=== PATIENT | female | born 1990 | race Asian ===

== ENCOUNTER 2016-09-14 12:29 | Emergency (ER) | payer OTHER ==
[~2016-09-14] VITALS: Ht 157.5 cm; Wt 52.0 kg
[~2016-09-14 12:29] MED LIST: PRENTAB26 PO
[2016-09-14 12:38] VITALS: TEMP 37.5; Ht 157.5 cm; Wt 52.0 kg
[2016-09-14] MEDS ORDERED: CEFTRIAXONE SOD INJ 1 GM ADDVIAL IV STA (14:03)
[2016-09-14] MEDS ORDERED: SODIUM CHLORIDE 0.9% 1000ML 2,000 ML IV STA (14:03)
[2016-09-14] MEDS ORDERED: ACETAMINOPHEN 500 MG TAB PO STA (14:03)
[2016-09-14] MEDS ORDERED: KETOROLAC TROMETHAMINE 30 MG/ML VIAL IV STA (14:03)
[2016-09-14] MEDS ORDERED: DOXY100C41 PO (14:22)
[2016-09-14 14:26] LABS: BASO % 0.2 %; BASO ABS # 0.03 K/uL (0-0.2); COMPLETE YES; EOS % 0.5 %; HEMATOCRIT 41.8 % (37-47); IG% 0.3 %; LYMPH % 6.6 %; LYMPH ABS # 1.17 K/uL (1.2-3.4); MEAN CELL VOLUME 91.7 fL (80-100); MEAN CORPUSCULAR HEMOGLOBIN 31.6 pg (25-34); MEAN CORPUSCULAR HGB CONC 34.4 g/dl (32-36); MEAN PLATELET VOLUME 10.2 fL (7.4-10.4); MONO % 4.6 %; NEUT % 87.8 %; PLATELET COUNT 311 K/uL (130-400); RED BLOOD COUNT 4.56 M/uL (4.2-5.4); WHITE BLOOD COUNT 17.71 K/uL (4.8-10.8)
[2016-09-14 14:40] LABS: BUN/CREATININE RATIO 12.7 (10-20); CALCIUM 10.1 mg/dl (8.5-10.1); CREATININE 0.66 mg/dl (0.60-1.20); POTASSIUM 3.9 mmol/L (3.5-5.1)
[2016-09-14 15:28] LABS: URINE APPEARANCE CLEAR (CLEAR); URINE BILIRUBIN NEG (NEG); URINE COLOR YELLOW; URINE EPITHELIAL CELL AUTO >30 /lpf (0-5); URINE NITRITE NEG (NEG); URINE PH 5.5 (4.5-7.5); URINE SPECIFIC GRAVITY 1.024 (1.000-1.030); UROBILINOGEN NEG (NEG)
[2016-09-14 15:29] LABS: MANUAL MICROSCOPIC REQUIRED? NO; REVIEW REQ? YES
--- NOTE | 2016-09-14 15:36 | DIAGNOSTIC IMAGING REPORT ---
RIGHT BREAST ULTRASONOGRAPHY CLINICAL HISTORY: Right breast pain and fever. COMPARISON STUDY: No previous studies for comparison. FINDINGS: There is an 8 mm complex cystic nodule at the 12:00 position. At 10:00 position there is a bilobed mixed echogenicity nodule measuring 21 x 9 x 20 mm. At the 9:00 position there is a mildly hypoechoic 11 x 8 x 10 mm nodule. There are no dominant fluid collections viewed as suspicious for a drainable abscess. IMPRESSION: 1. No ultrasonographic evidence of a drainable abscess 2. Multiple indeterminate right breast nodules. Short-term ultrasonographic follow-up is recommended. This should be performed at the breast Center. Electronically signed by: Mohinder Correa M.D. 09/14/2016 3:34 PM
[2016-09-14 15:45] LABS: URINE MUCUS PRESENT (NONE PRSENT)
[2016-09-14] MEDS ORDERED: SULFAMETHOXAZOLE/TRIMETHOPRIM DS 800/160MG TAB PO STA (16:10)
[2016-09-14] MEDS ORDERED: SULF800T23 PO ×2 (17:05→17:22)
--- NOTE | 2016-09-14 17:07 | EMERGENCY ROOM VISIT NOTE ---
ED Visit Note First contact with patient: 13:15 CHIEF COMPLAINT: Right breast mastitis 3-4 days HISTORY OF PRESENT ILLNESS: Patient is a 4 week 25-year-old female who presents the emergency department for evaluation of persistent fever and worsening right breast pain, swelling and redness over the last 2-3 days. Patient is presently breast-feeding. She states that she developed redness, warmth and sensitivity to touch in the right breast over the last couple of days. She called her CERTIFIED ORTHOTIST/PEDORTHIST and was started on dicloxacillin 500 mg 4 times a day Monday evening, 2 days ago. She has had a total of 6 doses. Patient continues to experience chills, max temperature was 102F orally yesterday. She has been taking ibuprofen, applying ice and Neosporin. She has noticed some redness on the left breast as well. She is continuing to breast-feed and pump during this episode. She denies any cold or upper respiratory symptoms, chest pain, palpitations or shortness of breath. She has expected abdominal discomfort and cramping. She denies any urinary symptoms, but does confirm that she was treated for urinary tract infections while she was . She did receive an epidural, but denies any back pain. No skin rashes. No prior history of skin infections or abscesses. REVIEW OF SYSTEMS: Review of systems as per HPI. All other systems reviewed were negative. 10 systems reviewed. PMH: Electronic medical records are reviewed and summarized as above/below. See Problem List. Her tetanus is up-to-date. SOCIAL HISTORY: Patient lives at home with her and family. From [facility]. PHYSICAL EXAM: Vital Signs: Reviewed Nurse's notes. Temperature 37.5C orally. Heart rate 116. Blood pressure 108/70. CONSTITUTIONAL: Patient is an ill although nontoxic appearing 25-year-old female who is awake and alert and laying on the gurney in no acute distress. EYES: Pupils equal, round, reactive to light and accommodation. EOMs intact without nystagmus. Sclera are anicteric. ENT: Tympanic membranes intact, with normal landmarks. External canals are clear. Oral and nasopharynx are clear. Mucous membranes are moist, no lesions , tongue and gums appear normal. NECK:Supple without lymphadenopathy. No thyromegaly. No meningeal signs. Full active range of motion without discomfort. CARDIOVASCULAR: Regular rate and rhythm, with normal S1 and S2, no murmur or gallop or rub is heard. No carotid bruits auscultated. No JVD. Peripheral pulses easily palpable. RESPIRATORY: Breath sounds equal and clear to auscultation without wheezes, rales, or rhonchi heard. Full and equal chest expansion without accessory muscle use or retractions. BREASTS: Examination of the patient's breast show diffuse erythema, warmth and induration. There is no nipple discharge. Right breast may be a little bit more erythematous and tender, particularly superiorly. There are no overt cellulitic changes. No fluctuance or palpable abscesses appreciated. No lymphangitic streaking. ABDOMEN: Bowel sounds are present. Abdomen is soft, nondistended, nontender to palpation. No guarding, rebound or rigidity. INTEGUMENTARY: No lesions or rash, normal skin turgor. LYMPH: No lymphadenopathy. BACK: Nontender, no rashes or swelling. EMERGENCY DEPARTMENT COURSE: The patient was seen and evaluated as above. Her L &D notes reviewed. She delivered term by spontaneous vaginal delivery that was fairly uncomplicated under epidural. She presents today complaining of breast pain and low-grade fever. She has been on antibiotics for about 36 hours. On exam, the right breast is slightly more red and tender compared to the left. Given her history of urinary tract infections, we did perform a Femcath for a urine sample which was sent for microscopy. Findings were not overtly indicative of infection. Her CBC did demonstrated leukocytosis of 17,700, with left shift and bandemia. H&H is normal. Electrolytes are unremarkable. Right breast ultrasound was obtained and did not demonstrate any evidence for abscess. The patient was hydrated with normal saline solution. She had a low- grade fever and was medicated with Tylenol 1 g orally, was given Toradol 30 mg IV for pain and Rocephin 1 g IV empirically. On reassessment, the patient looked and felt improved. She had also nursed, and on reexamination, both of the breasts were less red. The patient was encouraged to finish the dicloxacillin. Bactrim was also added to her regimen and she was issued her first dose of one tablet DS in the emergency department. She was encouraged to continue to apply warm compresses to the area and nurse on demand and pump as needed. If her symptoms do not improve in the next 24-48 hours, she was advised that she should either recheck with OB or come back to the emergency department, at which point she may require admission for IV antibiotics. Differential diagnoses entertained included mastitis, breast abscess, UTI, pyelonephritis, endometritis, viral illness, epidural abscess, among others. RIGHT BREAST ULTRASONOGRAPHY CLINICAL HISTORY: Right breast pain and fever. COMPARISON STUDY: No previous studies for comparison. FINDINGS: There is an 8 mm complex cystic nodule at the 12:00 position. At 10:00 position there is a bilobed mixed echogenicity nodule measuring 21 x 9 x 20 mm. At the 9:00 position there is a mildly hypoechoic 11 x 8 x 10 mm nodule. There are no dominant fluid collections viewed as suspicious for a drainable abscess. IMPRESSION: 1. No ultrasonographic evidence of a drainable abscess 2. Multiple indeterminate right breast nodules. Short-term ultrasonographic follow-up is recommended. This should be performed at the breast Center. Current/Historical Medications Scheduled Doxycycline (Monohydrate) (Monodox), 100 MG PO QID Multivit/Min/Iron/Fol Ac/Pren ( Vitamin), 1 TAB PO DAILY Sulfa/Trimethoprim (Bactrim Ds 800MG/160MG), 1 TAB PO BID Allergies Coded Allergies: No Known Allergies (Unverified , 09/14/16) Vital Signs Date Time Temp Pulse Resp B/P Pulse Ox O2 Delivery O2 Flow Rate FiO2 09/14/16 17:14 72 103/57 98 09/14/16 14:57 99 18 115/63 97 Room Air 09/14/16 12:38 37.5 116 16 108/70 98 Room Air Laboratory Results 09/14/16 13:25 Red Blood Count 4.56, Mean Corpuscular Volume 91.7, Mean Corpuscular Hemoglobin 31.6, Mean Corpuscular Hemoglobin Concent 34.4, Mean Platelet Volume 10.2, Neutrophils (%) (Auto) 87.8, Lymphocytes (%) (Auto) 6.6, Monocytes (%) (Auto) 4.6, Eosinophils (%) (Auto) 0.5, Basophils (%) (Auto) 0.2, Neutrophils # (Auto) 15.56, Lymphocytes # (Auto) 1.17, Monocytes # (Auto) 0.81, Eosinophils # (Auto) 0.08, Basophils # (Auto) 0.03 09/14/16 13:25 Test 09/14/16 13:25 09/14/16 14:44 White Blood Count 17.71 K/uL (4.8-10.8) Red Blood Count 4.56 M/uL (4.2-5.4) Hemoglobin 14.4 g/dL (12.0-16.0) Hematocrit 41.8 % (37-47) Mean Corpuscular Volume 91.7 fL (80-100) Mean Corpuscular Hemoglobin 31.6 pg (25-34) Mean Corpuscular Hemoglobin Concent 34.4 g/dl (32-36) Platelet Count 311 K/uL (130-400) Mean Platelet Volume 10.2 fL (7.4-10.4) Neutrophils (%) (Auto) 87.8 % Lymphocytes (%) (Auto) 6.6 % Monocytes (%) (Auto) 4.6 % Eosinophils (%) (Auto) 0.5 % Basophils (%) (Auto) 0.2 % Neutrophils # (Auto) 15.56 K/uL (1.4-6.5) Lymphocytes # (Auto) 1.17 K/uL (1.2-3.4) Monocytes # (Auto) 0.81 K/uL (0.11-0.59) Eosinophils # (Auto) 0.08 K/uL (0-0.5) Basophils # (Auto) 0.03 K/uL (0-0.2) RDW Standard Deviation 42.1 fL (36.4-46.3) RDW Coefficient of Variation 12.4 % (11.5-14.5) Immature Granulocyte % (Auto) 0.3 % Immature Granulocyte # (Auto) 0.06 K/uL (0.00-0.02) Anion Gap 10.0 mmol/L (3-11) Est Creatinine Clear Calc Drug Dose 104.9 ml/min Estimated GFR () 144.3 Estimated GFR (Non- 124.5 BUN/Creatinine Ratio 12.7 (10-20) Calcium Level 10.1 mg/dl (8.5-10.1) Urine Color YELLOW Urine Appearance CLEAR (CLEAR) Urine pH 5.5 (4.5-7.5) Urine Specific [place] 1.024 (1.000-1.030) Urine Protein NEG (NEG) Urine Glucose (UA) NEG (NEG) Urine Ketones NEG (NEG) Urine Occult Blood 1+ (NEG) Urine Nitrite NEG (NEG) Urine Bilirubin NEG (NEG) Urine Urobilinogen NEG (NEG) Urine Leukocyte Esterase NEG (NEG) Urine WBC (Auto) 1-5 /hpf (0-5) Urine RBC (Auto) 0-4 /hpf (0-4) Urine Hyaline Casts (Auto) 10-30 /lpf (0-5) Urine Epithelial Cells (Auto) >30 /lpf (0-5) Urine Bacteria (Auto) NEG (NEG) Urine Renal Epithelial Cells 0-5 /lpf (0-5) Urine Mucus PRESENT (NONE PRSENT) Medications Administered Medications (Trade) Dose Ordered Sig/Sajan Route Start Time Stop Time Status Last Admin Dose Admin Sodium Chloride (Nss 1000ml) 2,000 ml @ 999 mls/hr Q2H1M STAT IV 09/14/16 14:03 09/14/16 16:03 DC 09/14/16 14:32 999 MLS/HR Acetaminophen (Tylenol Tab) 1,000 mg NOW STAT PO 09/14/16 14:03 09/14/16 14:07 DC 09/14/16 14:34 1,000 MG Ketorolac Tromethamine (Toradol Inj) 30 mg NOW STAT IV 09/14/16 14:03 09/14/16 14:07 DC 09/14/16 14:33 30 MG Ceftriaxone Sodium (Rocephin Inj) 1 gm NOW STAT IV 09/14/16 14:03 09/14/16 14:07 DC 09/14/16 14:33 1 GM Trimethoprim/ Sulfamethoxazole (Septra Ds 800/ 160MG Tab) 1 tab NOW STAT PO 09/14/16 16:10 09/14/16 16:11 DC 09/14/16 16:17 1 TAB Departure Information Impression Primary Impression: Mastitis Prescriptions Sulfa/Trimethoprim (Bactrim Ds 800MG/160MG) Tab 1 TAB PO BID for 10 Days, #20 TAB Prov: Molly Paetl,MANI 09/14/16 Referrals No Doctor, Assigned (PCP) Patient Instructions A Signature Page, [facility] [employer] Additional Instructions Finish dicloxacillin as previously prescribed. Trimethoprim-Sulfamethoxazole(Bactrim DS): Take one pill twice daily for 10 days for your skin infection. All antibiotics can cause diarrhea. If this occurs and you feel worse or it does not resolve in 1-2 days follow up with your doctor or return to the Emergency Department as this could be signs of serious underlying problems. Any medication can cause an allergic reaction, stop the pills immediately and return to the ER for rash, hives, breathing difficulties, or swelling. Ibuprofen(Motrin, Advil) may be used for fever or pain. Use 600mg every six hours as needed. Take with food. Avoid using more than 2400mg in a 24 hour period. Do not use 2400mg per day for more than three consecutive days without physician direction. Prolonged inappropriate use can lead to stomach upset or ulcers. (AND/OR) Acetaminophen(Tylenol) may be used for fever or pain. Use 1000mg every six hours as needed. Avoid using more than 3000mg in a 24 hour period. Warm compresses to the affected area 4 times daily for 15-20 minutes. Continue to breastfeed on demand and pump as needed. Rest and drink plenty of fluids. Continue current medications. Return to the ER for severe pain, persistent fevers, spreading redness, or any worsening of your condition. Follow up with CERTIFIED ORTHOTIST/PEDORTHIST within 2-3 days for a recheck of the current condition.
[2016-09-14 17:14] VITALS: BP 103/57; PULSE 72; O2SAT 98
== END 2016-09-14 17:23 | disposition home or self-care (01) ==
LOC: C.EDB 12:31 → C.EDD 17:23
DX: N61.0 Mastitis without abscess (principal)

== ENCOUNTER → 2017-06-01 | Outpatient (CLI) | payer OTHER ==
[~2017-06-01] MED LIST changes: +DOXY100C41 PO; +OPTIRAY 320 IV PRN; +SULF800T23 PO
--- NOTE | 2017-06-01 10:04 | DIAGNOSTIC IMAGING REPORT ---
ABD/PELVIS IV AND ORAL CONT CT DOSE: 226.80 mGycm HISTORY: Abnormal ultrasound WITH IV AND ORAL ONLY @ 80 SEC DELAY PER LIVIER (RONAN) TECHNIQUE: Multiaxial CT images of the abdomen and pelvis were performed following the use of intravenous and oral contrast. A dose lowering technique was utilized adhering to the principles of ALARA. COMPARISON STUDY: None. FINDINGS: The lung bases are clear. The liver, spleen, gallbladder, pancreas, kidneys, and adrenal glands are within normal limits. No bowel wall thickening or obstruction. The pelvic organs are unremarkable. No suspicious lytic or blastic osseous lesions. Reconstructed images of the kidneys demonstrate minimal lateral renal iliac this is considered a nonobstructive finding. Enhancement characteristics are uniform. There are no filling defects within the renal collecting systems. Bowel pattern is considered nonobstructive. Appendix is normal. Small bilateral ovarian follicular cyst. Bladder is midline. Uterus is anteflexed. An intrauterine device is present. IMPRESSION: 1. Mild fullness of the renal collecting systems bilaterally. 2. No evidence for space-occupying renal lesion or filling defect. 3. Bilateral ovarian follicular cyst. 4. Evaluation of the abdomen and pelvis is otherwise negative. 5. Urinary tracts are considered negative for an acute abnormality. The above report was generated using voice recognition software. It may contain grammatical, syntax or spelling errors. Electronically signed by: Casey Posey M.D. 06/01/2017 10:02 AM Dictated Date/Time: 06/01/2017 9:52 AM
== END | disposition home or self-care (01) ==
LOC: C.CTS 09:03
PROVIDERS: ATTEND Physician Assistant Medical
DX: R10.2 Pelvic and perineal pain (principal); N83.01 Follicular cyst of right ovary; N83.02 Follicular cyst of left ovary

== ENCOUNTER 2017-07-25 21:11 | Emergency (ER) | payer OTHER ==
[~2017-07-25] VITALS: Ht 157.5 cm; Wt 48.0 kg
[~2017-07-25 21:11] MED LIST changes: -OPTIRAY 320 IV PRN
[2017-07-25 21:26] VITALS: TEMP 36.8; Ht 157.5 cm; Wt 48.0 kg
[2017-07-25] MEDS ORDERED: KETOROLAC TROMETHAMINE 30 MG/ML VIAL IV STA (21:42)
[2017-07-25 22:00] LABS: BASO % 0.2 %; BASO ABS # 0.01 K/uL (0-0.2); COMPLETE YES; EOS % 3.4 %; HEMATOCRIT 34.6 % (37-47); IG% 0.3 %; LYMPH % 47.9 %; LYMPH ABS # 2.96 K/uL (1.2-3.4); MEAN CELL VOLUME 88.7 fL (80-100); MEAN CORPUSCULAR HEMOGLOBIN 30.5 pg (25-34); MEAN CORPUSCULAR HGB CONC 34.4 g/dl (32-36); MEAN PLATELET VOLUME 9.4 fL (7.4-10.4); MONO % 7.1 %; NEUT % 41.1 %; PLATELET COUNT 273 K/uL (130-400); WHITE BLOOD COUNT 6.18 K/uL (4.8-10.8)
[2017-07-25 22:03] LABS: URINE APPEARANCE CLEAR (CLEAR); URINE BILIRUBIN NEG (NEG); URINE COLOR YELLOW; URINE NITRITE NEG (NEG); URINE SPECIFIC GRAVITY 1.007 (1.000-1.030); UROBILINOGEN NEG (NEG); ZZUR CULT IF INDIC CLEAN CATCH NO
[2017-07-25 22:07] LABS: MANUAL MICROSCOPIC REQUIRED? NO; REVIEW REQ? NO
[2017-07-25 22:31] LABS: ALT/SGPT 13 U/L (12-78); BLOOD UREA NITROGEN 13 mg/dl (7-18); BUN/CREATININE RATIO 24.8 (10-20); CARBON DIOXIDE 26 mmol/L (21-32); CHLORIDE 106 mmol/L (98-107); CREATININE 0.54 mg/dl (0.60-1.20); GLUCOSE 87 mg/dl (70-99); POTASSIUM 3.7 mmol/L (3.5-5.1); SODIUM 141 mmol/L (136-145)
[2017-07-25 22:34] LABS: ALKALINE PHOSPHATASE 61 U/L (45-117); AST/SGOT 12 U/L (15-37)
[2017-07-25 23:50] VITALS: BP 97/62; PULSE 66; O2SAT 99
--- NOTE | 2017-07-25 23:53 | DIAGNOSTIC IMAGING REPORT ---
PELVIC COMPLETE NON OB, TRANSVAG-FEMALE PELVIS CLINICAL HISTORY: 26 years-old Female presenting with Left side low abd pain. TECHNIQUE: Real-time grayscale and color and spectral Doppler ultrasound imaging of the pelvis was performed first using a transabdominal probe and subsequently transvaginal for better characterization. COMPARISON: None. FINDINGS: Uterus: Intrauterine device in appropriate position at the uterine fundus. Anteverted retroflexed. The uterus measures 7.8 x 3.8 x 5.6 cm. Endometrial stripe measures 6 mm in thickness. Endometrium normal-appearing. Cervix normal. Right adnexa: Right ovary contains multiple follicles. Right ovary measures 3.4 x 1.7 x 2.2 cm. Normal color Doppler flow and arterial and venous waveforms within the ovarian parenchyma. Left adnexa: Left ovary contains multiple follicles. Left ovary measures 3.7 x 1.5 x 2.2 cm. Normal color Doppler flow and arterial and venous waveforms within the ovarian parenchyma. Other: Trace free fluid, likely physiologic. IMPRESSION: Appropriately positioned intrauterine device. No ovarian torsion or significant abnormality in the pelvis. Electronically signed by: Micha Allred M.D. 07/25/2017 11:52 PM Dictated Date/Time: 07/25/2017 11:50 PM
[2017-07-26] MEDS ORDERED: ONDANSETRON HOME PACK 4MG OD TAB PO ONE (00:15)
[2017-07-26] MEDS ORDERED: MAGNESIUM CITRATE 296 ML/BTL PO ONE (00:15)
--- NOTE | 2017-07-26 01:40 | EMERGENCY ROOM VISIT NOTE ---
History First contact with patient: 21:32 Chief Complaint: ABDOMINAL PAIN Stated Complaint: LEFT LOWER ABDOMINAL CRAMP Nursing Triage Summary: Pt states lL q abd pain started 2 hours ago, states she was dx with a kidney stone a month ago, skin w/d/i, lungs CTA, abd flat, positive BS, denies N/V/D. History of Present Illness The patient is a 26 year old female who presents to the Emergency Room with complaints of left lower quadrant abdominal pain began to worsen about 2 hours ago. The patient states the pain is dull and nonradiating. She considers herself usually healthy, but states that she had a kidney stone about one month ago. The patient also has a history of constipation, however this is chronic. She is not had a bowel movement in the past 4-5 days. She has not had significant vomiting, but is mildly nauseated. No chest pain, chest tightness, or shortness of breath. No fever or chills. No recent antibiotic use. She does not believe that she is . She rates her discomfort a 5/10. Review of Systems More than 10 systems were reviewed and otherwise negative with the exception of history of present illness. Past Medical/Surgical History Medical Problems: (1) No Known Active Medical Problems Family History No pertinent family history Social History Smoking Status: Never Smoker Current/Historical Medications No Active Prescriptions or Reported Meds Physical Exam Vital Signs Date Time Temp Pulse Resp B/P (MAP) Pulse Ox O2 Delivery O2 Flow Rate FiO2 07/25/17 23:50 66 16 97/62 99 Room Air 07/25/17 21:43 67 18 113/56 99 Room Air 07/25/17 21:26 36.8 65 20 108/53 98 Room Air Physical Exam VITALS: Vitals are noted on the nurse's note and reviewed by myself. Vital signs stable. GENERAL: Well-developed, well-nourished, female, who is in no acute distress and resting comfortably. Patient is cooperative with the examination. HEART: Regular rate and rhythm without murmurs gallops or rubs. LUNGS: Clear to auscultation bilaterally without wheezes, rales or rhonchi. No retractions or accessory muscle use. ABDOMEN: Positive normal bowel sounds x 4. Soft, nontender, without masses or organomegaly. No guarding or rebound tenderness. MUSCULOSKELETAL: No muscle atrophy, erythema, or edema noted. Full range of motion without joint tenderness in all extremities. Medical Decision & Procedures ER Provider Diagnostic Interpretation: PELVIC COMPLETE NON OB, TRANSVAG-FEMALE PELVIS CLINICAL HISTORY: 26 years-old Female presenting with Left side low abd pain. TECHNIQUE: Real-time grayscale and color and spectral Doppler ultrasound imaging of the pelvis was performed first using a transabdominal probe and subsequently transvaginal for better characterization. COMPARISON: None. FINDINGS: Uterus: Intrauterine device in appropriate position at the uterine fundus. Anteverted retroflexed. The uterus measures 7.8 x 3.8 x 5.6 cm. Endometrial stripe measures 6 mm in thickness. Endometrium normal-appearing. Cervix normal. Right adnexa: Right ovary contains multiple follicles. Right ovary measures 3.4 x 1.7 x 2.2 cm. Normal color Doppler flow and arterial and venous waveforms within the ovarian parenchyma. Left adnexa: Left ovary contains multiple follicles. Left ovary measures 3.7 x 1.5 x 2.2 cm. Normal color Doppler flow and arterial and venous waveforms within the ovarian parenchyma. Other: Trace free fluid, likely physiologic. IMPRESSION: Appropriately positioned intrauterine device. No ovarian torsion or significant abnormality in the pelvis. PELVIC COMPLETE NON OB, TRANSVAG-FEMALE PELVIS CLINICAL HISTORY: 26 years-old Female presenting with Left side low abd pain. TECHNIQUE: Real-time grayscale and color and spectral Doppler ultrasound imaging of the pelvis was performed first using a transabdominal probe and subsequently transvaginal for better characterization. COMPARISON: None. FINDINGS: Uterus: Intrauterine device in appropriate position at the uterine fundus. Anteverted retroflexed. The uterus measures 7.8 x 3.8 x 5.6 cm. Endometrial stripe measures 6 mm in thickness. Endometrium normal-appearing. Cervix normal. Right adnexa: Right ovary contains multiple follicles. Right ovary measures 3.4 x 1.7 x 2.2 cm. Normal color Doppler flow and arterial and venous waveforms within the ovarian parenchyma. Left adnexa: Left ovary contains multiple follicles. Left ovary measures 3.7 x 1.5 x 2.2 cm. Normal color Doppler flow and arterial and venous waveforms within the ovarian parenchyma. Other: Trace free fluid, likely physiologic. IMPRESSION: Appropriately positioned intrauterine device. No ovarian torsion or significant abnormality in the pelvis. Laboratory Results 07/25/17 21:50 Red Blood Count 3.90, Mean Corpuscular Volume 88.7, Mean Corpuscular Hemoglobin 30.5, Mean Corpuscular Hemoglobin Concent 34.4, Mean Platelet Volume 9.4, Neutrophils (%) (Auto) 41.1, Lymphocytes (%) (Auto) 47.9, Monocytes (%) (Auto) 7.1, Eosinophils (%) (Auto) 3.4, Basophils (%) (Auto) 0.2, Neutrophils # (Auto) 2.54, Lymphocytes # (Auto) 2.96, Monocytes # (Auto) 0.44, Eosinophils # (Auto) 0.21, Basophils # (Auto) 0.01 07/25/17 21:50 Test 07/25/17 21:50 White Blood Count 6.18 K/uL (4.8-10.8) Red Blood Count 3.90 M/uL (4.2-5.4) Hemoglobin 11.9 g/dL (12.0-16.0) Hematocrit 34.6 % (37-47) Mean Corpuscular Volume 88.7 fL (80-100) Mean Corpuscular Hemoglobin 30.5 pg (25-34) Mean Corpuscular Hemoglobin Concent 34.4 g/dl (32-36) Platelet Count 273 K/uL (130-400) Mean Platelet Volume 9.4 fL (7.4-10.4) Neutrophils (%) (Auto) 41.1 % Lymphocytes (%) (Auto) 47.9 % Monocytes (%) (Auto) 7.1 % Eosinophils (%) (Auto) 3.4 % Basophils (%) (Auto) 0.2 % Neutrophils # (Auto) 2.54 K/uL (1.4-6.5) Lymphocytes # (Auto) 2.96 K/uL (1.2-3.4) Monocytes # (Auto) 0.44 K/uL (0.11-0.59) Eosinophils # (Auto) 0.21 K/uL (0-0.5) Basophils # (Auto) 0.01 K/uL (0-0.2) RDW Standard Deviation 39.8 fL (36.4-46.3) RDW Coefficient of Variation 12.4 % (11.5-14.5) Immature Granulocyte % (Auto) 0.3 % Immature Granulocyte # (Auto) 0.02 K/uL (0.00-0.02) Urine Color YELLOW Urine Appearance CLEAR (CLEAR) Urine pH 7.0 (4.5-7.5) Urine Specific [place] 1.007 (1.000-1.030) Urine Protein NEG (NEG) Urine Glucose (UA) NEG (NEG) Urine Ketones NEG (NEG) Urine Occult Blood TRACE (NEG) Urine Nitrite NEG (NEG) Urine Bilirubin NEG (NEG) Urine Urobilinogen NEG (NEG) Urine Leukocyte Esterase TRACE (NEG) Urine WBC (Auto) 1-5 /hpf (0-5) Urine RBC (Auto) 0-4 /hpf (0-4) Urine Hyaline Casts (Auto) 0 /lpf (0-5) Urine Epithelial Cells (Auto) 5-10 /lpf (0-5) Urine Bacteria (Auto) NEG (NEG) Urine Test NEG (NEG) Anion Gap 9.0 mmol/L (3-11) Est Creatinine Clear Calc Drug Dose 121.7 ml/min Estimated GFR () > 150.0 Estimated GFR (Non- 132.1 BUN/Creatinine Ratio 24.8 (10-20) Calcium Level 9.0 mg/dl (8.5-10.1) Total Bilirubin 0.2 mg/dl (0.2-1) Aspartate Amino Transf (AST/SGOT) 12 U/L (15-37) Alanine Aminotransferase (ALT/SGPT) 13 U/L (12-78) Alkaline Phosphatase 61 U/L (45-117) Total Protein 7.4 gm/dl (6.4-8.2) Albumin 3.8 gm/dl (3.4-5.0) Globulin 3.6 gm/dl (2.5-4.0) Albumin/Globulin Ratio 1.0 (0.9-2) Lipase 149 U/L (73-393) Medications Administered Medications (Trade) Dose Ordered Sig/Sajan Route Start Time Stop Time Status Last Admin Dose Admin Ketorolac Tromethamine (Toradol Inj) 30 mg NOW STAT IV 07/25/17 21:42 07/25/17 21:45 DC 07/25/17 21:57 30 MG ED Course Physical exam and history were performed. Nursing notes, EMR, and Medication List were personally reviewed. Patient appears to have left-sided abdominal pain for the past one to 2 hours. The patient does not appear toxic on examination. She does not have significantly reducible tenderness. Evidently she does have an IUD, and believes that some of her pain may be coming from this. She is without vaginal drainage or discharge and defers pelvic exam. IV access was established and labs were obtained. The patient was medicated with IV Toradol here in the department. Plain films and ultrasound were performed. The patient's blood work is as above and was reviewed. She does not have a significantly elevated white blood cell count, significant anemia, bandemia, or gross electrolyte imbalance. Urine is without obvious infection with culture pending. Her x-ray does show some constipation but no free air or obstruction. Ultrasound was without significant acute findings, and does identify an appropriately positioned IUD. On reevaluation the patient felt much more comfortable after the Toradol. She did not have any worsening of her symptoms. Repeat abdominal exam did not show any worsening of her symptoms. Overall and a lengthy discussion with patient and family about options of care. She is comfortable with discharge home, which appears reasonable. I suspect that some of her discomfort is related to her constipation, and I will give her a home pack of magnesium citrate. We'll also give her a home pack of Zofran. Her symptoms are likely viral or foodborne in nature and should improve over the next few days with conservative care. I recommended she follow with her PCP for further care and management. She is otherwise invited back to the ER with any new, worsening, or concerning symptoms. The chart was completed utilizing [employer] Speech Voice Recognition Software. Grammatical errors, random word insertions, pronoun errors, and incomplete sentences are an occasional consequence of this system due to software limitations, ambient noise, and hardware issues. Any formal questions or concerns about the content, text, or information contained within the body of this dictation should be directly addressed to the provider for clarification. . Medical Decision Differential diagnosis: Etiologies such as appendicitis, diverticulitis, PUD, biliary pathology, UTI, pancreatitis, obstruction, mesenteric ischemia, aortic pathology, infections, inflammatory bowel disease, renal colic, as well as others were entertained. Impression Primary Impression: Left sided abdominal pain Additional Impressions: Nausea Constipation Departure Information Dispostion Home / Self-Care Condition GOOD Prescriptions No Active Prescriptions or Reported Meds Forms HOME CARE DOCUMENTATION FORM, IMPORTANT VISIT INFORMATION Patient Instructions My [facility] Additional Instructions You were seen and evaluated today on an emergency basis only. This is not a substitute for, or an effort to provide, complete comprehensive medical care. It is not possible to recognize and treat all injuries or illnesses in a single emergency department visit. For this reason it is recommended that you followup with your primary care physician with any ongoing or persistent symptoms. Zofran 1 tablet dissolved under the tongue every 6 hrs as needed for nausea. Take magnesium citrate at home. Drink one half of the bottle, wait one hour, then drink the other half. We recommend you take this with lots of fluids as it will cause a bowel movement. You are welcome to return to the emergency department anytime with new, worsening, or concerning symptoms. Problem Qualifiers
--- NOTE | 2017-07-26 06:50 | DIAGNOSTIC IMAGING REPORT ---
ABDOMEN 2VIEW W/PA CHEST RTN CLINICAL HISTORY: Left lower quadrant abdominal pain COMPARISON STUDY: CT scan dated 06/01/2017 FINDINGS: The erect chest reveals no evidence of free air. There is no evidence of focal pulmonary consolidation.] Erect and supine views of the abdomen reveal no abnormally dilated loops of large or small bowel. There are no transition zone to indicate bowel obstruction. There is scattered stool within the colon. An IUD is visualized. IMPRESSION: No evidence of bowel obstruction. No evidence of free air. Electronically signed by: Mohinder Correa M.D. 07/26/2017 6:49 AM Dictated Date/Time: 07/26/2017 6:49 AM
== END 2017-07-26 00:20 | disposition home or self-care (01) ==
LOC: C.EDB 21:12 → C.EDC 07-26 00:20
DX: R10.32 Left lower quadrant pain (principal); R11.0 Nausea; K59.00 Constipation, unspecified; Z87.442 Personal history of urinary calculi

== ENCOUNTER 2017-08-05 23:25 | Emergency (ER) | payer OTHER ==
[~2017-08-05] VITALS: Ht 157.5 cm; Wt 48.2 kg
[2017-08-05 23:34] VITALS: TEMP 36.5; Ht 157.5 cm; Wt 48.2 kg
[2017-08-05] MEDS ORDERED: ACETAMINOPHEN 500 MG TAB PO STA (23:57)
[2017-08-06] MEDS ORDERED: DICYCLOMINE HCL 10 MG CAP PO ONE
--- NOTE | 2017-08-06 00:12 | EMERGENCY ROOM VISIT NOTE ---
History Report prepared by Kathleen: Veronique Torres Under the Supervision of: Dr. Jennyfer Kilpatrick D.O. First contact with patient: 23:37 Chief Complaint: ABDOMINAL PAIN Stated Complaint: LOWER BACK/ABD PAIN Nursing Triage Summary: pt reports started with L side abdominal pain at 1200 noon after taking mag citrate last night for constipation and then having large BM this AM History of Present Illness The patient is a 26 year old female who presents to the Emergency Room with complaints of constant left lower abdominal pain starting 1200 today. The pain goes into her left lower back. She has a history of constipation. She took magnesium citrate last night and had a large bowel movement this morning. The pain started after the bowel movement. The pain worsens with movement. She has not tried any medications for the pain. She states that her stool today was more green than normal. She denies any blood in the stool. She has been feeling chilly and nauseous. Her nausea is currently improved. She denies any vomiting or fever. She denies any recent travel, dietary changes, or sick contacts. She finished medications for H. pylori last month and has not had any symptoms since. She has had intermittent LLQ pain since she had her ParaGard placed. She has had an US which found that it was normally placed. That pain is different from her pain today. She notes that she had some blood tinged vaginal discharge this morning. She is currently mid cycle and usually does not having bleeding mid cycle. She last had intercourse 3-4 days ago. She did not have any discomfort or bleeding at that time. She is currently on a 7 day course of Cipro for UTI. She is on day 3 or 4. She is prone to UTIs and has had them in the past. She has had Cipro before without side effects. She denies any history of uterine problems. She had a colonoscopy 4 years ago for her constipation issues that found her colon was long. She states that she had a CT recently. Source of History: patient Onset: 1200 Position: abdomen (LLQ) Quality: other (pain) Timing: constant Modifying Factors (Worsening): movement Associated Symptoms: + chills, + nausea, + back pain, No fevers, No vomiting , No hematochezia Note: Pt reports bloody vaginal discharge. Review of Systems See HPI for pertinent positives & negatives. A total of 10 systems reviewed and were otherwise negative. Past Medical & Surgical Medical Problems: (1) Helicobacter pylori (H. pylori) (2) UTI (urinary tract infection) Family History Heart disease Hypertension Social History Smoking Status: Never Smoker Marital Status: Occupation Status: [employer] student Current/Historical Medications Scheduled Cefuroxime Axetil (Cefuroxime Axetil), 250 MG PO Q12 Cholecalciferol (Vitamin D3), 1 TAB PO DAILY Dicyclomine Hcl (Bentyl), 20 MG PO Q8 Allergies Coded Allergies: No Known Allergies (Unverified , 08/06/17) Physical Exam Vital Signs Date Time Temp Pulse Resp B/P (MAP) Pulse Ox O2 Delivery O2 Flow Rate FiO2 08/06/17 03:15 66 17 103/61 98 08/06/17 01:03 65 15 92/50 100 Room Air 08/05/17 23:34 36.5 67 18 96/61 99 Room Air Physical Exam GENERAL: alert, well appearing, well nourished, no distress, non-toxic EYE EXAM: normal conjunctiva, PERRL and EOM's grossly intact OROPHARYNX: no exudate, no erythema, lips, buccal mucosa, and tongue normal and mucous membranes are moist NECK: supple, no nuchal rigidity, no adenopathy, non-tender LUNGS: Clear to auscultation. Normal chest wall mechanics HEART: no murmurs, S1 normal and S2 normal ABDOMEN: abdomen soft, LLQ tenderness, mild suprapubic tenderness, normo-active bowel sounds, no masses, no rebound or guarding. BACK: Back is symmetrical on inspection and there is no deformity, no midline tenderness, no CVA tenderness. Left lower back tenderness. PELVIS: Patient could not tolerate insertion of speculum due to pain. On digital exam, cervix normal, IUD string palpable, no blood or discharge noted on gloved finger. Patient with left adnexal tenderness on bimanual exam. No CMT. No right adnexal tenderness. SKIN: no rashes and no bruising UPPER EXTREMITIES: upper extremities are grossly normal. LOWER EXTREMITIES: No pitting edema. NEURO EXAM: Normal sensorium, cranial nerves II-XII grossly intact, normal speech, normal gait, no gross weakness of arms, no gross weakness of legs. Medical Decision & Procedures ER Provider Diagnostic Interpretation: Radiology results have been interpreted by the [facility] radiologist and reviewed by me. US Renal: Right kidney measure 10.6 cm in length. No hydronephrosis or stone. Left kidney measures 10.2 cm in length. No hydronephrosis or stone. Visualized portions of the bladder are unremarkable. Bilateral ureteral jets visualized. Laboratory Results 08/05/17 00:05 Red Blood Count 4.18, Mean Corpuscular Volume 90.7, Mean Corpuscular Hemoglobin 30.4, Mean Corpuscular Hemoglobin Concent 33.5, Mean Platelet Volume 9.6, Neutrophils (%) (Auto) 57.0, Lymphocytes (%) (Auto) 33.2, Monocytes (%) (Auto) 7.3, Eosinophils (%) (Auto) 2.1, Basophils (%) (Auto) 0.3, Neutrophils # (Auto) 4.95, Lymphocytes # (Auto) 2.88, Monocytes # (Auto) 0.63, Eosinophils # (Auto) 0.18, Basophils # (Auto) 0.03 08/05/17 00:05 Test 08/05/17 00:05 08/05/17 23:44 White Blood Count 8.68 K/uL (4.8-10.8) Red Blood Count 4.18 M/uL (4.2-5.4) Hemoglobin 12.7 g/dL (12.0-16.0) Hematocrit 37.9 % (37-47) Mean Corpuscular Volume 90.7 fL (80-100) Mean Corpuscular Hemoglobin 30.4 pg (25-34) Mean Corpuscular Hemoglobin Concent 33.5 g/dl (32-36) Platelet Count 269 K/uL (130-400) Mean Platelet Volume 9.6 fL (7.4-10.4) Neutrophils (%) (Auto) 57.0 % Lymphocytes (%) (Auto) 33.2 % Monocytes (%) (Auto) 7.3 % Eosinophils (%) (Auto) 2.1 % Basophils (%) (Auto) 0.3 % Neutrophils # (Auto) 4.95 K/uL (1.4-6.5) Lymphocytes # (Auto) 2.88 K/uL (1.2-3.4) Monocytes # (Auto) 0.63 K/uL (0.11-0.59) Eosinophils # (Auto) 0.18 K/uL (0-0.5) Basophils # (Auto) 0.03 K/uL (0-0.2) RDW Standard Deviation 41.1 fL (36.4-46.3) RDW Coefficient of Variation 12.4 % (11.5-14.5) Immature Granulocyte % (Auto) 0.1 % Immature Granulocyte # (Auto) 0.01 K/uL (0.00-0.02) Anion Gap 4.0 mmol/L (3-11) Est Creatinine Clear Calc Drug Dose 146.7 ml/min Estimated GFR () > 150.0 Estimated GFR (Non- 140.2 BUN/Creatinine Ratio 14.9 (10-20) Calcium Level 8.4 mg/dl (8.5-10.1) Total Bilirubin 0.3 mg/dl (0.2-1) Aspartate Amino Transf (AST/SGOT) 18 U/L (15-37) Alanine Aminotransferase (ALT/SGPT) 17 U/L (12-78) Alkaline Phosphatase 55 U/L (45-117) Total Protein 7.5 gm/dl (6.4-8.2) Albumin 3.9 gm/dl (3.4-5.0) Globulin 3.6 gm/dl (2.5-4.0) Albumin/Globulin Ratio 1.1 (0.9-2) Human Chorionic Gonadotropin, Qual NEG (NEG) Urine Color YELLOW Urine Appearance CLEAR (CLEAR) Urine pH 7.5 (4.5-7.5) Urine Specific [place] 1.006 (1.000-1.030) Urine Protein NEG (NEG) Urine Glucose (UA) NEG (NEG) Urine Ketones NEG (NEG) Urine Occult Blood NEG (NEG) Urine Nitrite NEG (NEG) Urine Bilirubin NEG (NEG) Urine Urobilinogen NEG (NEG) Urine Leukocyte Esterase TRACE (NEG) Urine WBC (Auto) 1-5 /hpf (0-5) Urine RBC (Auto) 0-4 /hpf (0-4) Urine Hyaline Casts (Auto) 1-5 /lpf (0-5) Urine Epithelial Cells (Auto) 0-5 /lpf (0-5) Urine Bacteria (Auto) NEG (NEG) Urine Renal Epithelial Cells /lpf (0-5) Laboratory results per my review. Medications Administered Medications (Trade) Dose Ordered Sig/Sajan Route Start Time Stop Time Status Last Admin Dose Admin Acetaminophen (Tylenol Tab) 1,000 mg NOW STAT PO 08/05/17 23:57 08/06/17 00:00 DC 08/06/17 00:13 1,000 MG Dicyclomine HCl (Bentyl Cap) 10 mg NOW ONCE PO 08/06/17 00:00 08/06/17 00:01 DC 08/06/17 00:14 10 MG Ketorolac Tromethamine (Toradol Inj) 30 mg NOW STAT IV 08/06/17 01:27 08/06/17 01:28 DC 08/06/17 01:45 30 MG ED Course 2342: The patient was evaluated in room A3. A complete history and physical exam was performed. 2357: Acetaminophen 1000 mg PO. 0000: Bentyl Cap 10 mg PO. 0127: Toradol Inj 30 mg IV. 0226: I reevaluated the patient. I performed a pelvic exam. Findings are listed in the physical exam. The patient is still having pain with movement, but is generally mildly improved. No recurrent nausea. I discussed additional imaging and repeat pelvic ultrasound. She declined and prefers to go home. I discussed the findings and the treatment plan with the patient. She verbalizes agreement and understanding. She was discharged home. Medical Decision Differential diagnoses includes but is not limited to gastritis, peptic ulcer disease, GERD, gallbladder disease, pancreatitis, small bowel obstruction, acute coronary syndrome, pericarditis, ischemic bowel, irritable bowel disease, irritable bowel syndrome, appendicitis, diverticulitis, malignancy, hernia, urinary tract infection, torsion, /ectopic , perforation, trauma, infectious. Patient well-appearing here despite complaints and pain improved with medications. Pelvic exam incomplete due to pain. Reviewed pelvic ultrasound performed at the last visit which was unremarkable. I offered patient a repeat ultrasound and she declined. He is insured medical decision making and additional review of prior CAT scan, we discussed risks versus benefits of CAT scan, and I did not feel patient's condition given normal labs warranted repeat CAT scan, patient was agreeable and did not want to pursue repeat CAT scan area did patient was afebrile and hemodynamically stable. Discussed close follow-up with GEOGRAPHIC INFORMATION SYSTEMS MANAGER as she is concerned her IUD may be giving her pain and would like it removed. I instructed her that she should then discussed with her GEOGRAPHIC INFORMATION SYSTEMS MANAGER additional options for control. I do not suspect failed outpatient therapy for UTI, do not suspect pyelonephritis or additional obstructive uropathy. Doubt bacteremia/sepsis, doubt PID, doubt TSS, doubt torsion, TOA. Doubt additional acute GI pathology. Patient with a history of chronic constipation. However no fever or leukocytosis to suggest colitis, diverticulitis, perforation, intussusception, olgivies syndrome. Medication Reconcilliation Current Medication List: was personally reviewed by me Blood Pressure Screening Patient's blood pressure: Normal blood pressure Blood pressure disposition: Did not require urgent referral Impression Primary Impression: Left lower quadrant pain Additional Impressions: Nausea Constipation Scribe Attestation The scribe's documentation has been prepared under my direction and personally reviewed by me in its entirety. I confirm that the note above accurately reflects all work, treatment, procedures, and medical decision making performed by me. Departure Information Dispostion Home / Self-Care Prescriptions Dicyclomine Hcl (BENTYL) 20 Mg Tab 20 MG PO Q8 for Pain, #20 TAB Prov: Jennyfer Kilpatrick, DO 08/06/17 Referrals [facility] (PCP) Patient Instructions My [facility] Additional Instructions Please follow up with your GI specialist regarding your constipation and please continue to drink plenty of water make sure you're getting adequate fiber in your diet. Please: Follow up with GEOGRAPHIC INFORMATION SYSTEMS MANAGER regarding possible removal of your IUD and other forms of contraception. If you develop worsening pain, vomiting, fevers, noticed black or bloody stools, have difficulty urinating, or any other new concerns, please return the emergency room. Please finish her course of antibiotics until complete. You may use the additional bowel pain medication as prescribed. Problem Qualifiers Additional Impressions: Constipation Constipation type: unspecified constipation type Qualified Codes: K59.00 - Constipation, unspecified
[2017-08-06] MEDS ORDERED: CEFU1TAB36 PO (00:18)
[2017-08-06] MEDS ORDERED: CHOL1000 PO (00:19)
[2017-08-06 00:20] LABS: BASO % 0.3 %; BASO ABS # 0.03 K/uL (0-0.2); COMPLETE YES; EOS % 2.1 %; HEMATOCRIT 37.9 % (37-47); IG% 0.1 %; LYMPH % 33.2 %; LYMPH ABS # 2.88 K/uL (1.2-3.4); MEAN CELL VOLUME 90.7 fL (80-100); MEAN CORPUSCULAR HEMOGLOBIN 30.4 pg (25-34); MEAN CORPUSCULAR HGB CONC 33.5 g/dl (32-36); MEAN PLATELET VOLUME 9.6 fL (7.4-10.4); MONO % 7.3 %; PLATELET COUNT 269 K/uL (130-400); RED BLOOD COUNT 4.18 M/uL (4.2-5.4); WHITE BLOOD COUNT 8.68 K/uL (4.8-10.8)
[2017-08-06 00:39] LABS: ALT/SGPT 17 U/L (12-78); AST/SGOT 18 U/L (15-37); BLOOD UREA NITROGEN 7 mg/dl (7-18); BUN/CREATININE RATIO 14.9 (10-20); CALCIUM 8.4 mg/dl (8.5-10.1); CARBON DIOXIDE 29 mmol/L (21-32); CHLORIDE 104 mmol/L (98-107); CREATININE 0.45 mg/dl (0.60-1.20); GLUCOSE 91 mg/dl (70-99); POTASSIUM 3.8 mmol/L (3.5-5.1); SODIUM 137 mmol/L (136-145)
[2017-08-06 00:41] LABS: ALB/GLOB RATIO 1.1 (0.9-2); ALKALINE PHOSPHATASE 55 U/L (45-117)
[2017-08-06 00:45] LABS: PREG INTERNAL NEGATIVE QC NEG CLEAR BACKGROUND; PREG INTERNAL POSITIVE QC POS CONTROL LINE
[2017-08-06 00:45] LABS: URINE APPEARANCE CLEAR (CLEAR); URINE BILIRUBIN NEG (NEG); URINE COLOR YELLOW; URINE NITRITE NEG (NEG); URINE PH 7.5 (4.5-7.5); URINE SPECIFIC GRAVITY 1.006 (1.000-1.030); UROBILINOGEN NEG (NEG); ZZUR CULT IF INDIC CLEAN CATCH NO
[2017-08-06 00:46] LABS: MANUAL MICROSCOPIC REQUIRED? NO; REVIEW REQ? YES
[2017-08-06] MEDS ORDERED: KETOROLAC TROMETHAMINE 30 MG/ML VIAL IV STA (01:27)
[2017-08-06 01:30] LABS: URINE EPITHELIAL CELL AUTO 0-5 /lpf (0-5)
[2017-08-06] MEDS ORDERED: DICY20TA35 PO (02:53)
[2017-08-06 03:15] VITALS: BP 103/61; PULSE 66; O2SAT 98
--- NOTE | 2017-08-06 07:02 | DIAGNOSTIC IMAGING REPORT ---
RENAL ULTRASOUND HISTORY: left flank/back pain COMPARISON: Abdomen and pelvis CT 06/01/2017. FINDINGS: Right kidney: 10.6 cm. No hydronephrosis. Normal corticomedullary differentiation and cortical thickness. Left kidney: 10.2 cm. No hydronephrosis. Normal corticomedullary differentiation and cortical thickness. Bladder: No bladder wall thickening. The bilateral ureteral jets were identified. IMPRESSION: Normal renal ultrasound. Electronically signed by: Raulito Aguila M.D. 08/06/2017 7:01 AM Dictated Date/Time: 08/06/2017 7:00 AM
== END 2017-08-06 03:17 | disposition home or self-care (01) ==
LOC: C.EDB 23:26 → C.EDA 08-06 03:17
DX: R10.32 Left lower quadrant pain (principal); R11.0 Nausea; K59.00 Constipation, unspecified; Z87.440 Personal history of urinary (tract) infections; Z86.19 Personal history of other infectious and parasitic diseases; Z98.890 Other specified postprocedural states; Z82.49 Family history of ischemic heart disease and other diseases of the circulatory system

== ENCOUNTER 2017-11-19 14:31 | Emergency (ER) | payer SELFPAY ==
[~2017-11-19] VITALS: Ht 157.5 cm; Wt 49.0 kg
[~2017-11-19 14:31] MED LIST changes: +CEFU1TAB36 PO; +CHOL1000 PO; -DOXY100C41 PO; -PRENTAB26 PO; -SULF800T23 PO
[2017-11-19 14:36] VITALS: TEMP 36.5; Ht 157.5 cm; Wt 49.0 kg
[2017-11-19] MEDS ORDERED: ONDANSETRON INJ 2 MG/ML 2 ML VIAL IV STA (14:56)
[2017-11-19] MEDS ORDERED: KETOROLAC TROMETHAMINE 30 MG/ML VIAL IV STA (14:56)
[2017-11-19] MEDS ORDERED: SODIUM CHLORIDE 0.9% 1000ML 1,000 ML IV STA (14:56)
[2017-11-19] MEDS ORDERED: BCPILLS PO (15:10)
[2017-11-19 15:27] LABS: BASO % 0.2 %; BASO ABS # 0.01 K/uL (0-0.2); EOS % 0.7 %; EOS ABS # 0.04 K/uL (0-0.5); HEMATOCRIT 38.5 % (37-47); HEMOGLOBIN 13.4 g/dL (12.0-16.0); IG# 0.01 K/uL (0.00-0.02); LYMPH % 12.9 %; MEAN CELL VOLUME 88.3 fL (80-100); MEAN CORPUSCULAR HEMOGLOBIN 30.7 pg (25-34); MEAN CORPUSCULAR HGB CONC 34.8 g/dl (32-36); MEAN PLATELET VOLUME 9.4 fL (7.4-10.4); MONO % 5.9 %; MONO ABS # 0.32 K/uL (0.11-0.59); NEUT % 80.1 %; NEUT ABS # 4.36 K/uL (1.4-6.5); PLATELET COUNT 217 K/uL (130-400); RED CELL DISTRIBUTION WIDTH CV 12.1 % (11.5-14.5); RED CELL DISTRIBUTION WIDTH SD 38.9 fL (36.4-46.3); WHITE BLOOD COUNT 5.44 K/uL (4.8-10.8)
[2017-11-19 15:44] LABS: ALBUMIN 3.6 gm/dl (3.4-5.0); ALT/SGPT 12 U/L (12-78); BLOOD UREA NITROGEN 5 mg/dl (7-18); CALCIUM 8.1 mg/dl (8.5-10.1); CARBON DIOXIDE 24 mmol/L (21-32); GLUCOSE 94 mg/dl (70-99); LIPASE 119 U/L (73-393); POTASSIUM 3.7 mmol/L (3.5-5.1); SODIUM 138 mmol/L (136-145)
[2017-11-19 15:47] LABS: ALKALINE PHOSPHATASE 48 U/L (45-117); AST/SGOT 14 U/L (15-37); TOTAL PROTEIN 7.4 gm/dl (6.4-8.2)
--- NOTE | 2017-11-19 15:47 | DIAGNOSTIC IMAGING REPORT ---
ABDOMEN 2VIEW W/PA CHEST RTN CLINICAL HISTORY: Abdominal pain and bloating. COMPARISON STUDY: 07/25/2017 FINDINGS: The erect chest reveals no free air. There is no focal pulmonary consolidation. Erect and supine views the abdomen reveal gas and stool-filled loops of large bowel. There are no transition zones indicate bowel obstruction. There is no pathologic small bowel dilatation. IMPRESSION: Mild fecal retention. No evidence of bowel obstruction. No evidence of free air. Electronically signed by: Mohinder Correa M.D. 11/19/2017 3:45 PM Dictated Date/Time: 11/19/2017 3:44 PM
--- NOTE | 2017-11-19 16:51 | EMERGENCY ROOM VISIT NOTE ---
History First contact with patient: 14:39 Chief Complaint: ABDOMINAL PAIN Stated Complaint: ABDOMINAL PAIN,BLOATING Nursing Triage Summary: pt to the ED with all over abd and back pain since last night with nausea History of Present Illness Patient is a 27-year-old female who presents emergency department accompanied by her for evaluation of abdominal pain, bloating and nausea that started last evening. The patient has a history of constipation. She states that she regularly needs to use medications to help facilitate bowel movements. She states that her last bowel movement was 4 days ago after taking magnesium citrate. Patient states that she was feeling well otherwise and was in her usual state of health until last evening, when she began to feel very nauseous and nearly vomited. She developed diffuse abdominal pain and nausea that persisted through the evening and kept her from sleeping comfortably. Today, she noted that her abdomen felt very bloated and hard, primarily on the left side that wrapped around to her back. She again continues to feel nauseous. She states that she ate some food cooked at home with an oil that it may have been as she states that she was doing a lot of burping last evening and could taste the oil. She denies any urinary symptoms. Last menstrual period was 11/06, patient reports that she is on control pills. She denies any other gynecologic history. As stated above, she does have a history of constipation, she has been seen by GI for this and had a colonoscopy and was told that she had a "long sigmoid colon." She states the dietary changes and using fiber and Metamucil as discussed with GI did not help with her constipation. She presently rates her abdominal pain a 8/10. Review of Systems Review of systems as per HPI. All other systems reviewed were negative. 10 systems reviewed. Past Medical/Surgical History Medical Problems: (1) Constipation (2) Constipation (3) Helicobacter pylori (H. pylori) (4) Left lower quadrant pain (5) Left sided abdominal pain (6) Left sided abdominal pain (7) Mastitis (8) Nausea (9) Nausea (10) UTI (urinary tract infection) Surgical Problems: (1) History of tonsillectomy Electronic medical records are reviewed and summarized as above/below. See Problem List. Family History Heart disease Hypertension Social History Smoking Status: Never Smoker Alcohol Use: none Marital Status: Housing Status: lives with family Occupation Status: [employer] student Current/Historical Medications Scheduled Control Pills ( Control Pills), 1 TAB PO DAILY Physical Exam Vital Signs Date Time Temp Pulse Resp B/P (MAP) Pulse Ox O2 Delivery O2 Flow Rate FiO2 11/19/17 17:12 83 16 101/59 98 11/19/17 15:50 76 18 100/59 100 Room Air 11/19/17 14:36 36.5 89 16 105/73 98 Physical Exam CONSTITUTIONAL: Patient is a petite, well-appearing 27-year-old white female who is awake and alert and in no acute distress. EYES: Pupils equal, round, reactive to light and accommodation. EOMs intact without nystagmus. Sclera are anicteric. ENT: Tympanic membranes intact, with normal landmarks. External canals are clear. Oral and nasopharynx are clear. Mucous membranes are moist, no lesions , tongue and gums appear normal. NECK: No bruits auscultated. Supple without lymphadenopathy. No thyromegaly. No meningeal signs. Full active range of motion without discomfort. CARDIOVASCULAR: Regular rate and rhythm, with normal S1 and S2, no murmur or gallop or rub is heard. No carotid bruits auscultated. No JVD. Peripheral pulses easily palpable. RESPIRATORY: Breath sounds equal and clear to auscultation without wheezes, rales, or rhonchi heard. Full and equal chest expansion without accessory muscle use or retractions. ABDOMEN: Bowel sounds are present. Abdomen is mildly distended, tympanic to percussion throughout, and mildly tender, primarily in the left lower quadrant. There is no guarding, rebound or rigidity. There is no pain in the right lower quadrant over McBurney's point. INTEGUMENTARY: No lesions or rash, normal skin turgor. LYMPH: No lymphadenopathy. Medical Decision & Procedures ER Provider Diagnostic Interpretation: ABDOMEN 2VIEW W/PA CHEST RTN CLINICAL HISTORY: Abdominal pain and bloating. COMPARISON STUDY: 07/25/2017 FINDINGS: The erect chest reveals no free air. There is no focal pulmonary consolidation. Erect and supine views the abdomen reveal gas and stool-filled loops of large bowel. There are no transition zones indicate bowel obstruction. There is no pathologic small bowel dilatation. IMPRESSION: Mild fecal retention. No evidence of bowel obstruction. No evidence of free air. Laboratory Results 11/19/17 15:15 Red Blood Count 4.36, Mean Corpuscular Volume 88.3, Mean Corpuscular Hemoglobin 30.7, Mean Corpuscular Hemoglobin Concent 34.8, Mean Platelet Volume 9.4, Neutrophils (%) (Auto) 80.1, Lymphocytes (%) (Auto) 12.9, Monocytes (%) (Auto) 5.9, Eosinophils (%) (Auto) 0.7, Basophils (%) (Auto) 0.2, Neutrophils # (Auto) 4.36, Lymphocytes # (Auto) 0.70, Monocytes # (Auto) 0.32, Eosinophils # (Auto) 0.04, Basophils # (Auto) 0.01 11/19/17 15:15 Test 11/19/17 15:15 White Blood Count 5.44 K/uL (4.8-10.8) Red Blood Count 4.36 M/uL (4.2-5.4) Hemoglobin 13.4 g/dL (12.0-16.0) Hematocrit 38.5 % (37-47) Mean Corpuscular Volume 88.3 fL (80-100) Mean Corpuscular Hemoglobin 30.7 pg (25-34) Mean Corpuscular Hemoglobin Concent 34.8 g/dl (32-36) Platelet Count 217 K/uL (130-400) Mean Platelet Volume 9.4 fL (7.4-10.4) Neutrophils (%) (Auto) 80.1 % Lymphocytes (%) (Auto) 12.9 % Monocytes (%) (Auto) 5.9 % Eosinophils (%) (Auto) 0.7 % Basophils (%) (Auto) 0.2 % Neutrophils # (Auto) 4.36 K/uL (1.4-6.5) Lymphocytes # (Auto) 0.70 K/uL (1.2-3.4) Monocytes # (Auto) 0.32 K/uL (0.11-0.59) Eosinophils # (Auto) 0.04 K/uL (0-0.5) Basophils # (Auto) 0.01 K/uL (0-0.2) RDW Standard Deviation 38.9 fL (36.4-46.3) RDW Coefficient of Variation 12.1 % (11.5-14.5) Immature Granulocyte % (Auto) 0.2 % Immature Granulocyte # (Auto) 0.01 K/uL (0.00-0.02) Urine Color YELLOW Urine Appearance CLEAR (CLEAR) Urine pH 7.0 (4.5-7.5) Urine Specific Carroll 1.006 (1.000-1.030) Urine Protein NEG (NEG) Urine Glucose (UA) NEG (NEG) Urine Ketones NEG (NEG) Urine Occult Blood NEG (NEG) Urine Nitrite NEG (NEG) Urine Bilirubin NEG (NEG) Urine Urobilinogen NEG (NEG) Urine Leukocyte Esterase NEG (NEG) Urine Test NEG (NEG) Anion Gap 8.0 mmol/L (3-11) Est Creatinine Clear Calc Drug Dose 133.0 ml/min Estimated GFR () > 150.0 Estimated GFR (Non- 134.5 BUN/Creatinine Ratio 10.1 (10-20) Calcium Level 8.1 mg/dl (8.5-10.1) Total Bilirubin 0.3 mg/dl (0.2-1) Aspartate Amino Transf (AST/SGOT) 14 U/L (15-37) Alanine Aminotransferase (ALT/SGPT) 12 U/L (12-78) Alkaline Phosphatase 48 U/L (45-117) Total Protein 7.4 gm/dl (6.4-8.2) Albumin 3.6 gm/dl (3.4-5.0) Globulin 3.8 gm/dl (2.5-4.0) Albumin/Globulin Ratio 0.9 (0.9-2) Lipase 119 U/L (73-393) Medications Administered Medications (Trade) Dose Ordered Sig/Sajan Route Start Time Stop Time Status Last Admin Dose Admin Sodium Chloride 1,000 ml @ 999 mls/hr Q1H1M STAT IV 11/19/17 14:56 11/19/17 15:56 DC 11/19/17 15:21 999 MLS/HR Ondansetron HCl (Zofran Inj) 4 mg NOW STAT IV 11/19/17 14:56 11/19/17 14:58 DC 11/19/17 15:22 4 MG Ketorolac Tromethamine (Toradol Inj) 30 mg NOW STAT IV 11/19/17 14:56 11/19/17 14:58 DC 11/19/17 15:22 30 MG ED Course The patient was seen and assessed as above. Old records were reviewed. She does have some prior emergency department visits for abdominal pain. She presents the emergency department today with concerns for either constipation or food poisoning. She does have a very distended, tympanic abdomen on exam, otherwise no signs of a surgical abdomen. IV lock was initiated. She was hydrated with normal saline solution. She was medicated with Zofran 4 mg and Toradol 30 mg IV. It was discussed and agreed upon that we would like to defer on any narcotic medication at this time given the possibility of constipation. CBC with differential, CMP, lipase, urinalysis and urine test were performed. Acute abdominal series was obtained. Laboratory studies noted a normal white count. No anemia. There is no left shift or bandemia. Electrolytes are within normal limits. BUN and creatinine 5 and 0.5. LFTs are not elevated. Lipase is normal. Urinalysis is clean and urine test is negative. The patient was reassessed, and rated her pain a 6/10 and stated it was tolerable. She did not wish to pursue any additional medications. Acute abdominal series noted mild fecal retention with gas and stool filled loops of large bowel. There was no evidence for bowel obstruction. No free air. The patient was reassessed and made aware of the results of her laboratory and diagnostic imaging studies. Given the findings on abdominal series I suspect her pain is largely related to the constipation and gaseous distention. She does not have any findings concerning for bowel obstruction. Differential diagnoses also entertained included infectious versus inflammatory enteritis/ colitis, food borne illness, bowel obstruction, volvulus, IBS, among others. Bowel regimen was discussed with the patient. She has done enemas previously, states that the [id number] fleets enemas have been ineffective. She was issued a soapsuds enema kit from the emergency department. She was educated on how to use it properly and expressed understanding. She was also encouraged to start a MiraLAX and Colace regimen. She was advised to go on a clear liquid diet until her symptoms improve. Certainly if her pain worsens, she does not have relief with the bowel regimen, if she develops a fever or vomiting, she is welcome to return to the emergency department for reassessment. The patient rated her pain a 0/10 at discharge. Her vital signs were stable. Medical Decision See emergency department course. Medication Reconcilliation Current Medication List: was personally reviewed by me Blood Pressure Screening Patient's blood pressure: Normal blood pressure Blood pressure disposition: Did not require urgent referral Impression Primary Impression: Constipation Additional Impression: Abdominal bloating Departure Information Referrals [facility] (PCP) Patient Instructions My [facility] Additional Instructions Administer soapsuds enema at home as instructed. Start MiraLAX once daily in the morning according to package instructions, and Colace 2 tablets at bedtime. Take these medications regularly until symptoms improve and you have regular soft bowel movements. Acetaminophen(Tylenol) may be used for fever or pain. Use 1000mg every eight hours as needed. Avoid using more than 3000mg in a 24 hour period. This is available over the counter. Rest and drink plenty of fluids as tolerated. Slow sips of water or sports drinks are recommended instead of large amounts all at once. Continue current medications. Start with a clear liquid diet (jello, soup broth, etc.) for the next 2-3 days until symptoms improve, and then advance as tolerated. Return to the ER immediately for worsening or persistent abdominal pain, vomiting, fevers, chest pains, difficulty breathing, black or bloody stools, worsening of your condition, or as needed. Follow up with [facility] this week for a recheck of your current condition. Problem Qualifiers
[2017-11-19 17:12] VITALS: BP 101/59; PULSE 83; O2SAT 98
== END 2017-11-19 17:10 | disposition home or self-care (01) ==
LOC: C.EDB 14:32 → C.EDC 17:10
DX: K59.00 Constipation, unspecified (principal); R14.0 Abdominal distension (gaseous); Z79.3 Long term (current) use of hormonal contraceptives; Z82.49 Family history of ischemic heart disease and other diseases of the circulatory system